=== PATIENT | female | born 1990 | race Caucasian/White ===

== ENCOUNTER 2021-09-16 19:32 | Emergency (ER) | payer BC, SELFPAY ==
--- NOTE | ~2021-09-16 | XR_ITS ---
EXAMINATION: XR CHEST CLINICAL INFORMATION: Shortness of breath COMPARISON: None TECHNIQUE: Frontal view of the chest was obtained. FINDINGS: No significant abnormality is noted involving the heart, lungs, mediastinum, bony thorax or soft tissues. XR/XR chest 1V IMPRESSION: Normal chest x-ray.
[2021-09-16 19:38] VITALS: BP 151/107; PULSE 112; RESP 19; TEMP 36.7; O2SAT 100; BMI 20.9
--- NOTE | 2021-09-16 19:55 | ED_ITS ---
HPI - Allergic Reaction General Chief complaint: Allergic Reaction Stated complaint: Allergic Reaction Time Seen by Provider: 09/16/21 19:53 Source: patient and family Mode of arrival: ambulatory Limitations: no limitations History of Present Illness HPI narrative: This is a 30-year-old female presenting to the emergency department for a possible allergic reaction x2 days. Patient tells me yesterday she felt like her entire body was itchy. She reports that this morning she awoke with a diffuse body rash that was very itchy. She tells me she took Benadryl, went to her PCPs office and was seen by a provider other than her PCP. They recommended for her to take Benadryl, her last dose was at 09:00. They prescribed her 30 mg of prednisone in the morning, 30 mg of prednisone at night. They also recommended she take Talita 60 mg daily. She decided to come into the emergency department because she started developing sudden onset shortness of breath after she had dinner. Patient has an EpiPen however she did not have to use it. Patient's mother and patient both tell me that patient has got an allergy tested multiple times and has been nonconclusive. She has never had an allergic reaction that has caused her shortness of breath. Patient appears anxious. She cannot recall any new fluids she ate. Denies any new clothing. Denies any new substances. MD complaint: allergic reaction and hives Onset (ago): day(s) (2) Exposure: unknown Symptoms: rash, itching and other (Shortness of breath) Severity: moderate Treatment prior to arrival: benadryl (Benadryl 25 mg at 09:00) Previous Allergic Reaction History: none Related Data Previous Rx's Medication Instructions Recorded diphenhydramine HCl 25 mg capsule 25 mg PO TID PRN #20 cap 09/16/21 (Benadryl) epinephrine 0.3 mg/0.3 mL 0.3 mg (0.3 mL) IM Q4H PRN #2 ea 09/16/21 injection, auto-injector (EpiPen) Allergies Allergy/AdvReac Type Severity Reaction Status Date / Time amoxicillin [From Augmentin] Allergy Unknown Verified 09/16/21 19:42 clavulanic acid Allergy Unknown Verified 09/16/21 19:42 [From Augmentin] nitrofurantoin Allergy Unknown Verified 09/16/21 19:42 [From Macrobid] Penicillins Allergy Unknown Verified 09/16/21 19:42 Review of Systems Review of Systems: Constitutional : No Weight loss, No Fever, No Chills, No Fatigue, No Malaise ENT/Mouth : No sore throat, No Rhinorrhea Eyes: No Eye Pain, No Swelling, No Redness Cardiovascular : No Chest Pain, + SOB, No Dyspnea on Exertion, No Orthopnea, No Edema, No Palpitations Respiratory : No Cough, No Sputum, No Wheezing Gastrointestinal : No Nausea, No Vomiting, No Diarrhea, No Constipation, No abdominal Pain, No Hematochezia, No Melena Genitourinary : No Dysuria, No Urinary Frequency, No Hematuria, Musculoskeletal : No joint pain, No Myalgias, No Joint Swelling Skin : No Skin Lesions, + rash Neuro : No Weakness, No Numbness, No Dizziness, No Headache Psych : No Anxiety/Panic, No Depression All other systems reviewed and are negative Yes all other systems are reviewed and are negative [facility] Past Medical History Attestation statement: The following information was validated with the patient. Source: old records reviewed and nursing notes reviewed Social History Social History Advance Directives: No Advance Directives Information Provided: No Physical Exam ED Vital Signs: Vital Signs - 24 hr 09/16/21 19:38 Temperature 98.1 F Pulse Rate 112 H Respiratory Rate 19 Blood Pressure 151/107 H Pulse Oximetry 100 BMI result Body Mass Index 20.9 Patient noted to be hypertensive and tachycardic likely secondary to anxiety. Saturating 100% on room air. Appearance: Alert.? Oriented X3.? No acute distress.? Patient speaking in full sentences, controlling secretions appears to be in no acute distress. Head: Normocephalic, atraumatic, no step-offs or deformities Eyes: Pupils equal, round and reactive to light.? ENT: Pharynx normal.? Mallampati score of 1. No swelling of the tongue or lips. Neck: Normal inspection.? Neck supple.? CVS: Normal heart rate and rhythm.? Pulses normal.? Respiratory: No respiratory distress.? Breath sounds normal.? Abdomen: Soft and nontender.? Skin: Skin warm and dry.? Normal skin color.? Normal skin turgor.?+ scattered urticaria throughout patients body Extremities: No lower extremity edema.? No calf ttp. 5/5 strength to bilateral upper and lower extremities Back: No midline tenderness, no C-spine tenderness, full range of motion, no CVA tenderness bilaterally Neuro: Oriented X 3.? No motor deficit.? No sensory deficit. CN 2-12 intact Course Reevaluation(s) Reevaluation #1: Normal chest x-ray. Influenza and COVID negative. Patient feeling much better after Benadryl and fluids. Patient tells me her throat no longer feels funny. Patient is now much more calm, and has better color. At this time patient will be discharged home with an EpiPen and Benadryl. Advised her to follow-up with an allergy doctor. Return with new or worsening symptoms. At time of discharge patient's vital signs stable, saturating 100% on room air. Time: 22:57 MDM - Allergic Reaction MDM Narrative Medical decision making narrative: 1957 30-year-old female presents to the emergency department with rash, shortness of breath/possible allergic reaction x1 day. Physical examination with scattered urticaria, lungs clear, regular rate and rhythm, abdomen soft nontender nondistended. Neuro exam nonfocal. Patient speaking in full sentences, Mallampati score of 1, controlling secretions well. Appears to be in no acute distress, appears comfortable however anxious. Patient is noted to be hypertensive, tachycardic likely secondary to anxiety. Plan at this time is to give patient IV fluids, Benadryl. I will obtain a chest x-ray, COVID and influenza swab as well. Medical Records Attestation: I reviewed the patient's medical records. Lab Data Attestation: I reviewed the patient's lab results. Labs: Lab Results 09/16/21 09/16/21 Range/Units 20:03 20:03 COVID-19 (ADELFO) Negative (Negative) COVID-19 Clin Com See Note Influenza Type A (EFRAIN) Negative (Negative) Influenza Type B (EFRAIN) Negative (Negative) Influenza A & B Note See Note Critical Care Time Critical Care Time Critical Care Time: No Discharge Plan Discharge Clinical Impression: Allergic reaction, Urticaria Patient Disposition: Home, Self-Care Additional Instructions: Take your medications as prescribed. If you were prescribed antibiotics today, it is important that you take your medication to their entirety, do not skip any doses, do not finish them early. Follow-up with your primary care provider this week. Return to the emergency department with new or worsening symptoms. Such as fevers, chills, chest pain, shortness of breath, nausea, vomiting, dizziness, headache, vision changes, lethargy In case of emergency call 911 Follow-up with an allergy doctor. I have sent an EpiPen to her pharmacy as discussed only use this with severe symptoms. If you have to use the EpiPen you should seek medical attention immediately and call 911. You can take Benadryl for itching, rash 50 mg by mouth AIANE: [facility] [address] [place], [place] [address] ? [facility] [address] [place] [address] [id number], [place] [address] ? Prescriptions: New epinephrine [EpiPen] 0.3 mg/0.3 mL auto-injector 0.3 mg IM Q4H PRN (Reason: anaphylaxis) Qty: 2 0RF diphenhydramine HCl [Benadryl] 25 mg capsule 25 mg PO TID PRN (Reason: allergic reaction) Qty: 20 0RF Referrals: Annabel Lopez NP [Primary Care Provider] - 3 days Stand Alone Forms: Work/School Release
[2021-09-16] MEDS: diphenhydrAMINE HCL 50 MG/ML VIAL IVPUSH (20:05)
[2021-09-16] MEDS: 0.9 % Sodium Chloride 1,000 ML 999 ML IV (20:05)
--- NOTE | 2021-09-16 20:08 | PC.NURSE ---
IV established, pt medicated per MAR.
[2021-09-16 20:26] LABS: COVID-19 Test Negative (Negative); IDNOW Serial# 16C4AD1C; Influenza A Negative (Negative); Influenza B2 Negative (Negative)
--- NOTE | 2021-09-16 21:58 | PC.NURSE ---
Pt ambulating to and from the bathroom with a steady gait.
[2021-09-16 23:00] VITALS: BP 118/91; PULSE 88; RESP 14; TEMP 36.6; O2SAT 98
== END 2021-09-16 23:21 | disposition home or self-care (01) ==
PROVIDERS: Physician Assistant; Emergency Provider Internal Medicine; PCP Nurse Practitioner Family
DX: L50.0 Allergic urticaria (principal); R06.02 Shortness of breath; Z20.822 Contact with and (suspected) exposure to COVID-19; Z79.899 Other long term (current) drug therapy
CPT/HCPCS: 71045; 87502; 87635; 96361; 96374; 99283; 99284; J1200

== ENCOUNTER 2023-01-28 10:10 | Emergency (ER) | payer BC, SELFPAY ==
--- NOTE | ~2023-01-28 | CT_ITS ---
EXAMINATION: CT ABDOMEN AND PELVIS WITH CONTRAST CLINICAL INFORMATION: Rectal bleeding COMPARISON: None available. TECHNIQUE: Multidetector volumetric images were obtained from the superior aspect of the liver through the pubic symphysis following administration 85 mL of Omnipaque 350 intravenous contrast. Sagittal and coronal reformatted images were obtained on the technologist's workstation. Oral contrast: Yes This CT examination was performed using dose optimization techniques as appropriate, variously including the following: *Automated exposure control *Adjustment of mA and/or kV according to patient size (this includes techniques or standardized protocols for targeted exams where dose is matched to indication/reason for exam; i.e. extremities or head) *Use of iterative reconstruction technique DLP: 381 mGy-cm FINDINGS: LUNG BASES: The visualized lung bases are unremarkable. LIVER, GALLBLADDER, AND BILIARY TREE: The liver is normal in size, shape, and attenuation. No focal hepatic lesion or biliary ductal dilatation is present. The gallbladder is unremarkable with no evidence of radiopaque gallstones, gallbladder wall thickening, or obvious pericholecystic inflammatory changes. There is nonspecific periportal edema. This can be seen with a aggressive hydration. PANCREAS: Unremarkable. SPLEEN: Unremarkable. ADRENAL GLANDS: Unremarkable. KIDNEYS AND URETERS: The kidneys are normal in size, shape, and attenuation. No hydronephrosis, hydroureter, or calculi seen. No perinephric stranding. BLADDER: Unremarkable. GASTROINTESTINAL TRACT: There is wall thickening and edema of the colon and stranding of the surrounding fat suggestive of hammond colitis. No evidence of obstruction, perforation or abscess. Small bowel is normal. The appendix is unremarkable. ABDOMINAL WALL: No significant hernia is appreciated. LYMPH NODES: Normal. VASCULAR: Unremarkable. PELVIC VISCERA: Trace ascites in the pelvis. Uterus and adnexa are unremarkable. OSSEOUS STRUCTURES: Unremarkable. CT/CT abdomen pelvis w IV con IMPRESSION: Colitis. Fleischner guidelines were followed.
--- NOTE | 2023-01-28 10:28 | ED.ABDPAIN ---
HPI - Abdominal Pain General Chief Complaint: General Medical Stated Complaint: Abd pain/ syncope Time Seen by Provider: 01/28/23 11:00 Source: patient Mode of arrival: ambulatory Limitations: no limitations History of Present Illness HPI narrative: Abdominal pain woke her from sleep, she was dizzy couldn't see, very bad diarrhea, getting up every 15 minutes. She took some pedialyte and is less dizzy. She states now there is blood in her diarrhea. Denies food poisoning. No one else sick. Did take abx over a month ago for UTI. MD elicited complaint: abdominal pain Onset (ago): hour(s) Pain Consistency: intermittent Related Data Previous Rx's Medication Instructions Recorded diphenhydramine HCl 25 mg capsule 25 mg PO TID PRN allergic reaction 09/16/21 (Benadryl) #20 caps epinephrine 0.3 mg/0.3 mL 0.3 mg (0.3 mL) IM Q4H PRN 09/16/21 injection, auto-injector (EpiPen) anaphylaxis #2 ea levofloxacin 500 mg tablet 500 mg PO DAILY 10 days #10 tabs 01/28/23 metronidazole 500 mg tablet 500 mg PO TID #30 tabs 01/28/23 Allergies Allergy/AdvReac Type Severity Reaction Status Date / Time amoxicillin [From Augmentin] Allergy Unknown Verified 01/28/23 10:29 clavulanic acid Allergy Unknown Verified 01/28/23 10:29 [From Augmentin] nitrofurantoin Allergy Unknown Verified 01/28/23 10:29 [From Macrobid] Penicillins Allergy Unknown Verified 01/28/23 10:29 Review of Systems Review of Systems Yes all other systems are reviewed and are negative [facility] Social History Social History Advance Directives: No Advance Directives Information Provided: No Physical Exam ED Vital Signs: Vital Signs - 24 hr 01/28/23 10:29 Temperature 98.7 F Pulse Rate 100 Respiratory Rate 18 Blood Pressure 124/84 Pulse Oximetry 98 Oxygen Delivery Method Room Air BMI result Body Mass Index 21.0 Const Other: pale appearing weak Nutritional Appearance: average body habitus Orientation/consciousness: oriented to person and patient oriented x3 Limitations: no limitations HENMT Head: Yes normal to inspection Ears: external ears normal General nose exam: Normal external nose present Mouth: Normal oral and palatal mucosa present and oropharynx normal Throat: Yes posterior oropharynx normal Eyes General: appearance normal, both eyes and all related structures Neck Neck: Yes normal visual inspection Chest Chest palpation & inspection: normal inspection of the chest Resp Auscultation: clear to auscultation bilaterally Cardio Jugular venous distension: no JVD Rate: regular rate Rhythm: regular rhythm Heart sounds: S1 normal heart sound present and S2 normal heart sound present GI Other: diffuse mild nonfocal tenderness Inspection: Yes normal to inspection Palpation (GI): Soft to palpation and Tenderness to palpation present (GI) Auscultation: normal bowel sounds General: Yes no CVA tenderness Back/Spine/Pelvis Back: no CVA tenderness Skin General skin exam: no rashes or lesions noted Neuro General: oriented to person and patient oriented x3 Cranial nerves: Yes CN's II-XII intact bilaterally Motor exam (neuro): 5/5 motor strength present throughout Extrem General: Yes normal to inspection Psych Appearance: grossly normal Course Course Course Narrative: This is a rapid medical exam. Deferred additional HPI, ROS and PE to primary provider. 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 LMP 2 weeks ago. Will obtain labs, UA, ur , CT, EKG VSS. Reevaluation(s) Reevaluation #1: patient with hammond colitis with intestinal bleeding will dc home on levaquin and flagyl Time: 15:28 Medical Decision Making Differential Diagnosis Differential Diagnoses: The differential diagnosis associated with the presentation includes (GI hemorrhage, ulcerative colitis, colitis, cdiff were all considered) Admission/Observation Consideration of admission/observation: Escalation of care including admission/observation considered (upon arrival patient was considered for admission) Lab Data MDM Lab Attestation statement: I reviewed the patient's lab results. (elevated wbc, normal HCT, lfts normal) 01/28/23 10:49 01/28/23 10:49 Labs: Lab Results 01/28/23 01/28/23 01/28/23 Range/Units 10:49 10:49 10:49 WBC 13.8 H (4.8-10.8) X10*3/uL RBC 4.58 (4.20-5.50) X10*6/uL Hgb 13.4 (12.0-16.0) g/dl Hct 39.1 (37.0-47.0) % MCV 85.4 (80.0-98.0) fL MCH 29.3 (27.0-33.0) pg MCHC 34.3 (31.0-35.0) g/dl RDW 11.8 (11.0-16.0) % Plt Count 320 (160-400) X10*3/uL MPV 9.9 (9.4-12.3) fL Immature Gran % (Auto) 0.2 (0.0-0.4) % Neut % (Auto) 91.4 H (45-73) % Lymph % (Auto) 6.2 L (20-40) % [place] % (Auto) 1.9 L (2-11) % Eos % (Auto) 0.0 (0-4) % Baso % (Auto) 0.3 (0-2) % Lymph # (Auto) 0.9 L (1.2-4.9) X10*3/uL [place] # (Auto) 0.3 (0.1-1.2) X10*3/uL Eos # (Auto) 0.0 (0.0-0.4) X10*3/uL Baso # (Auto) 0.0 (0.0-0.2) X10*3/uL Abs Immat Gran (auto) 0.03 (0.00-0.03) X10*3/uL Absolute Neuts (auto) 12.6 H (2.0-8.3) x10*3/uL Absolute Nucleated RBC 0.000 (0.0-0.012) X10*3/uL Nucleated RBC % (auto) 0.0 (0.0-0.2) /100WBC Smear Tech's Comments VERIFIED Sodium 136 (135-145) mmol/L Potassium 3.8 (3.3-5.1) mmol/L Chloride 103 (96-108) mmol/L Carbon Dioxide 23 (22-29) mmol/L Anion Gap 14 (12-20) BUN 10 (9-16) mg/dL Creatinine 0.96 (0.5-1.4) mg/dL Estim Creat Clear Calc 79.0 Estimated GFR > 60 Random Glucose 160 H (60-115) mg/dL Estimat Average Glucose 91 mg/dL Hemoglobin A1c % 4.8 (<6.0) % Calcium 10.1 (8.4-10.2) mg/dL Magnesium 2.0 (1.6-2.6) mg/dL Total Bilirubin 1.1 H (0.0-1.0) mg/dL Direct Bilirubin 0.3 (0.0-0.5) mg/dL AST 17 (5-31) U/L ALT 15 (0-31) U/L Alkaline Phosphatase 73 (39-117) U/L Total Protein 7.9 (6.5-8.0) g/dL Albumin 4.5 (3.5-5.0) g/dL Urine Color Urine Appearance Urine pH (5.0-9.0) Ur Specific Alpine (1.005-1.025) Urine Protein (Neg-Trace) mg/dL Urine Glucose (UA) (Negative) mg/dL Urine Ketones (Negative) mg/dL Urine Blood (Negative) Urine Nitrite (Negative) Ur Leukocyte Esterase (Negative) Urine RBC (0-2) /HPF Urine WBC (0-5) /HPF Ur Squamous Epith Cells (0-2) /HPF Urine Bacteria (None Seen) Hyaline Casts (0-2) /LPF Urine Test (NEGATIVE) COVID-19 (ADELFO) (Negative) COVID-19 Clin Com Influenza Type A (EFRAIN) (Negative) Influenza Type B (EFRAIN) (Negative) Influenza A & B Note 01/28/23 01/28/23 01/28/23 Range/Units 11:16 11:16 Unknown WBC (4.8-10.8) X10*3/uL RBC (4.20-5.50) X10*6/uL Hgb (12.0-16.0) g/dl Hct (37.0-47.0) % MCV (80.0-98.0) fL MCH (27.0-33.0) pg MCHC (31.0-35.0) g/dl RDW (11.0-16.0) % Plt Count (160-400) X10*3/uL MPV (9.4-12.3) fL Immature Gran % (Auto) (0.0-0.4) % Neut % (Auto) (45-73) % Lymph % (Auto) (20-40) % [place] % (Auto) (2-11) % Eos % (Auto) (0-4) % Baso % (Auto) (0-2) % Lymph # (Auto) (1.2-4.9) X10*3/uL [place] # (Auto) (0.1-1.2) X10*3/uL Eos # (Auto) (0.0-0.4) X10*3/uL Baso # (Auto) (0.0-0.2) X10*3/uL Abs Immat Gran (auto) (0.00-0.03) X10*3/uL Absolute Neuts (auto) (2.0-8.3) x10*3/uL Absolute Nucleated RBC (0.0-0.012) X10*3/uL Nucleated RBC % (auto) (0.0-0.2) /100WBC Smear Tech's Comments Sodium (135-145) mmol/L Potassium (3.3-5.1) mmol/L Chloride (96-108) mmol/L Carbon Dioxide (22-29) mmol/L Anion Gap (12-20) BUN (9-16) mg/dL Creatinine (0.5-1.4) mg/dL Estim Creat Clear Calc Estimated GFR Random Glucose (60-115) mg/dL Estimat Average Glucose mg/dL Hemoglobin A1c % (<6.0) % Calcium (8.4-10.2) mg/dL Magnesium (1.6-2.6) mg/dL Total Bilirubin (0.0-1.0) mg/dL Direct Bilirubin (0.0-0.5) mg/dL AST (5-31) U/L ALT (0-31) U/L Alkaline Phosphatase (39-117) U/L Total Protein (6.5-8.0) g/dL Albumin (3.5-5.0) g/dL Urine Color Yellow Urine Appearance Clear Urine pH 7.0 (5.0-9.0) Ur Specific Alpine 1.010 (1.005-1.025) Urine Protein Negative (Neg-Trace) mg/dL Urine Glucose (UA) Negative (Negative) mg/dL Urine Ketones Negative (Negative) mg/dL Urine Blood Negative (Negative) Urine Nitrite Positive H (Negative) Ur Leukocyte Esterase Trace H (Negative) Urine RBC 0-2 (0-2) /HPF Urine WBC 0-5 (0-5) /HPF Ur Squamous Epith Cells 0-2 (0-2) /HPF Urine Bacteria Trace (None Seen) Hyaline Casts 0-2 (0-2) /LPF Urine Test (NEGATIVE) COVID-19 (ADELFO) Negative (Negative) COVID-19 Clin Com See Note Influenza Type A (EFRAIN) Negative (Negative) Influenza Type B (EFRAIN) Negative (Negative) Influenza A & B Note See Note 01/28/23 Range/Units Unknown WBC (4.8-10.8) X10*3/uL RBC (4.20-5.50) X10*6/uL Hgb (12.0-16.0) g/dl Hct (37.0-47.0) % MCV (80.0-98.0) fL MCH (27.0-33.0) pg MCHC (31.0-35.0) g/dl RDW (11.0-16.0) % Plt Count (160-400) X10*3/uL MPV (9.4-12.3) fL Immature Gran % (Auto) (0.0-0.4) % Neut % (Auto) (45-73) % Lymph % (Auto) (20-40) % [place] % (Auto) (2-11) % Eos % (Auto) (0-4) % Baso % (Auto) (0-2) % Lymph # (Auto) (1.2-4.9) X10*3/uL [place] # (Auto) (0.1-1.2) X10*3/uL Eos # (Auto) (0.0-0.4) X10*3/uL Baso # (Auto) (0.0-0.2) X10*3/uL Abs Immat Gran (auto) (0.00-0.03) X10*3/uL Absolute Neuts (auto) (2.0-8.3) x10*3/uL Absolute Nucleated RBC (0.0-0.012) X10*3/uL Nucleated RBC % (auto) (0.0-0.2) /100WBC Smear Tech's Comments Sodium (135-145) mmol/L Potassium (3.3-5.1) mmol/L Chloride (96-108) mmol/L Carbon Dioxide (22-29) mmol/L Anion Gap (12-20) BUN (9-16) mg/dL Creatinine (0.5-1.4) mg/dL Estim Creat Clear Calc Estimated GFR Random Glucose (60-115) mg/dL Estimat Average Glucose mg/dL Hemoglobin A1c % (<6.0) % Calcium (8.4-10.2) mg/dL Magnesium (1.6-2.6) mg/dL Total Bilirubin (0.0-1.0) mg/dL Direct Bilirubin (0.0-0.5) mg/dL AST (5-31) U/L ALT (0-31) U/L Alkaline Phosphatase (39-117) U/L Total Protein (6.5-8.0) g/dL Albumin (3.5-5.0) g/dL Urine Color Urine Appearance Urine pH (5.0-9.0) Ur Specific [place] (1.005-1.025) Urine Protein (Neg-Trace) mg/dL Urine Glucose (UA) (Negative) mg/dL Urine Ketones (Negative) mg/dL Urine Blood (Negative) Urine Nitrite (Negative) Ur Leukocyte Esterase (Negative) Urine RBC (0-2) /HPF Urine WBC (0-5) /HPF Ur Squamous Epith Cells (0-2) /HPF Urine Bacteria (None Seen) Hyaline Casts (0-2) /LPF Urine Test NEGATIVE (NEGATIVE) COVID-19 (ADELFO) (Negative) COVID-19 Clin Com Influenza Type A (EFRAIN) (Negative) Influenza Type B (EFRAIN) (Negative) Influenza A & B Note Radiology Impression Discussion of test interpretation with radiology: I have reviewed the radiologist's reading. (hammond colitis, I agree with the reading) Independent Historian Clinical information obtained from an independent historian. History obtained from or confirmed by: Other (mother) Prescription Management I considered prescription management with: Pain Medication (patient appears comfortable with not give narcotics for pain at this time) Medications Administered Discontinued Medications Generic Name Dose Route Start Last Admin Trade Name Freq PRN Reason Stop Dose Admin Sodium Chloride 1,000 mls @ 999 mls/hr 01/28/23 11:15 01/28/23 14:15 Ns IVCONT 01/28/23 13:15 Infused .Q1H1M NNAMDI Infusion Iohexol 100 ml 01/28/23 14:12 01/28/23 14:12 Iohexol 350 Mg/Ml 100 Ml Infus..Btl IV 01/28/23 14:13 85 ml ONCE ONE Administration Ondansetron HCl 4 mg 01/28/23 11:13 01/28/23 11:26 Ondansetron Hcl 4 Mg/2 Ml Vial IVPUSH 01/28/23 11:14 4 mg ONCE ONE Administration Discharge Plan Discharge Clinical Impression: Colitis Patient Disposition: Home, Self-Care Instructions: Colitis (ED) Additional Instructions: clear liquid diet for 3 days follow by 48 hours of BRAT diet Prescriptions: New levofloxacin 500 mg tablet 500 mg PO DAILY 10 Days Qty: 10 0RF metronidazole 500 mg tablet 500 mg PO TID Qty: 30 0RF No Action epinephrine [EpiPen] 0.3 mg/0.3 mL auto-injector 0.3 mg IM Q4H PRN (Reason: anaphylaxis) Qty: 2 0RF diphenhydramine HCl [Benadryl] 25 mg capsule 25 mg PO TID PRN (Reason: allergic reaction) Qty: 20 0RF Referrals: Annabel Lopez, RETAIL SHIFT MANAGER [Primary Care Provider] - 5 days Interventions: ED Discharge Assessment Last Done: 01/28/23 15:25
[2023-01-28 10:29] VITALS: BP 124/84; PULSE 100; RESP 18; TEMP 37.1; O2SAT 98; BMI 21.0
--- NOTE | 2023-01-28 10:29 | ECG_ITS ---
Test Reason : SYNCOPE Blood Pressure : / mmHG Vent. Rate : 089 BPM Atrial Rate : 089 BPM P-R Int : 128 ms QRS Dur : 080 ms QT Int : 340 ms P-R-T Axes : 079 070 -50 degrees QTc Int : 413 ms Normal sinus rhythm Nonspecific ST and T wave abnormality Abnormal ECG No previous ECGs available Referred By: Lauren Napoles Electronically Signed By:WILMAR WARD
[2023-01-28 10:56] LABS: Basophils Percent Auto 0.3 % (0-2); Hematocrit 39.1 % (37.0-47.0); Hemoglobin 13.4 g/dl (12.0-16.0); Imm Gran Abs Auto 0.03 X10*3/uL (0.00-0.03); Imm Gran Pct Auto 0.2 % (0.0-0.4); Lymphocytes Absolute Auto 0.9 X10*3/uL (1.2-4.9); Lymphocytes Percent Auto 6.2 % (20-40); MANUAL DIFF FLAG SCAN; Mean Corpuscular HGB Conc 34.3 g/dl (31.0-35.0); Mean Corpuscular Hemoglobin 29.3 pg (27.0-33.0); Mean Corpuscular Volume 85.4 fL (80.0-98.0); Mean Platelet Volume 9.9 fL (9.4-12.3); Monocytes Absolute Auto 0.3 X10*3/uL (0.1-1.2); Monocytes Percent Auto 1.9 % (2-11); Neutrophils Absolute Auto 12.6 x10*3/uL (2.0-8.3); Neutrophils Percent Auto 91.4 % (45-73); Platelet Count 320 X10*3/uL (160-400); Red Blood Count 4.58 X10*6/uL (4.20-5.50); Red Cell Distribution Width 11.8 % (11.0-16.0); SCAN SMEAR FLAG 1; White Blood Count 13.8 X10*3/uL (4.8-10.8)
[2023-01-28 11:14] LABS: SLIDE REVIEW VERIFIED
[2023-01-28 11:19] LABS: Alanine Aminotransferase 15 U/L (0-31); Albumin Level 4.5 g/dL (3.5-5.0); Alkaline Phosphatase 73 U/L (39-117); Anion Gap 14 (12-20); Aspartate Amino Transferase 17 U/L (5-31); Bilirubin Direct 0.3 mg/dL (0.0-0.5); Bilirubin Total 1.1 mg/dL (0.0-1.0); Blood Urea Nitrogen 10 mg/dL (9-16); Calcium 10.1 mg/dL (8.4-10.2); Carbon Dioxide 23 mmol/L (22-29); Chloride 103 mmol/L (96-108); Estimated Glomerular Filt Rate > 60; Glucose Random 160 mg/dL (60-115); Potassium 3.8 mmol/L (3.3-5.1); Sodium 136 mmol/L (135-145); Total Protein 7.9 g/dL (6.5-8.0)
[2023-01-28] MEDS: 0.9 % Sodium Chloride 1,000 ML 999 ML IVCONT ×2 (11:24→13:12)
[2023-01-28] MEDS: ondansetron HCL 4 MG/2 ML VIAL IVPUSH (11:26)
[2023-01-28 12:03] LABS: COVID-19 Test Negative (Negative); IDNOW Serial# 16C4AD1C; Influenza A Negative (Negative); Influenza B2 Negative (Negative)
[2023-01-28 13:37] LABS: Appearance Urine Clear; Color Urine Yellow; Glucose Urine UA Negative (Negative); Leukocyte Esterase Urine Trace (Negative); Nitrite Urine Positive (Negative); UMIC TRIGGER UACC YES; Urine Blood Negative (Negative); Urine Ketones Negative (Negative); Urine Protein Negative (Neg-Trace)
[2023-01-28 13:42] LABS: UPreg QC Valid YES; Urine Pregnancy NEGATIVE (NEGATIVE)
[2023-01-28 13:52] LABS: Bacteria Urine Trace (None Seen); Hyaline Casts Urine 0-2 /LPF (0-2); RBC Urine 0-2 /HPF (0-2); Squamous Epithelial Cell Urine 0-2 /HPF (0-2); UACC Culture Trigger YES; WBC Urine 0-5 /HPF (0-5)
[2023-01-28 14:09] LABS: Estimated Average Glucose 91 mg/dL; Hemoglobin A1c % 4.8 % (<6.0)
[2023-01-28] MEDS: iohexoL 350 MG/ML 100 ML INFUS..BTL IV (14:12)
[2023-01-28] MEDS: levoFLOXacin 500 MG TABLET PO (15:31)
[2023-01-28] MEDS: metroNIDAZOLE 500 MG TABLET PO (15:31)
== END 2023-01-28 15:34 | disposition home or self-care (01) ==
PROVIDERS: Nurse Practitioner Family; Emergency Provider Emergency Medicine; PCP Nurse Practitioner Family
DX: K52.9 Noninfective gastroenteritis and colitis, unspecified (principal); R55 Syncope and collapse; R42 Dizziness and giddiness; R94.31 Abnormal electrocardiogram [ECG] [EKG]; R10.2 Pelvic and perineal pain; Z20.822 Contact with and (suspected) exposure to COVID-19; Z20.828 Contact with and (suspected) exposure to other viral communicable diseases; Z79.899 Other long term (current) drug therapy
CPT/HCPCS: 74177; 80048; 80076; 81001; 81025; 83036; 83735; 85025; 87086; 87088; 87186; 87502; 87635; 93005; 99284; 99285; J2405; Q9967

== ENCOUNTER 2023-12-27 10:54 | Emergency (ER) | payer OTHER, BC, SELFPAY ==
--- NOTE | ~2023-12-27 | XR_ITS ---
EXAMINATION: XR KNEE, LEFT CLINICAL INFORMATION: Knee injury COMPARISON: None available. TECHNIQUE: Four views of the left knee. FINDINGS: No fracture or joint effusion. Alignment is anatomic. Joint spaces are maintained. No abnormal soft tissue calcification. XR/XR knee LT 4V IMPRESSION: Normal left knee.
[2023-12-27 11:00] VITALS: BP 127/87; PULSE 85; RESP 18; TEMP 37.2; O2SAT 97; BMI 20.6
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
[2023-12-27 14:22] VITALS: BP 121/76; PULSE 80; RESP 18; TEMP 36.8; O2SAT 98
== END 2023-12-27 14:23 | disposition home or self-care (01) ==
PROVIDERS: Emergency Provider Emergency Medicine; PCP Nurse Practitioner Family
DX: S83.92XA Sprain of unspecified site of left knee, initial encounter (principal); V43.52XA Car driver injured in collision with other type car in traffic accident, initial encounter; Y93.89 Activity, other specified; Y92.414 Local residential or business street as the place of occurrence of the external cause; Y99.9 Unspecified external cause status
CPT/HCPCS: 73564; 99283